=== PATIENT | male | born 1975 | race Caucasian/White ===

== ENCOUNTER 2019-03-13 13:46 | Inpatient (IN) | payer OTHER ==
[2019-03-13] MEDS ORDERED: DILTIAZEM DRIP BOLUS FROM BAG 1 MG SOLN IV ONE (14:04)
--- NOTE | 2019-03-13 14:08 | ED ---
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 Patient suddenly felt sweaty and nauseated and near syncopal. Patient denies having her currently having any palpitations. No chest pain. No history of similar symptoms previously. EMS did tell patient that his heart rate was high. Patient denies any history of arrhythmia. Patient states he does drink a lot of coffee, otherwise denies street drugs or diet pills. Patient is near symptom-free at this time. - Related Data Home Medications Medication Instructions Recorded Confirmed Lisinopril-Hctz 20-25 mg 1 tab PO DAILY 03/13/19 03/13/19 [Zestoretic 20-25] Metoprolol Succinate [Toprol XL] 25 mg PO DAILY 03/13/19 03/13/19 Allergies Allergy/AdvReac Type Severity Reaction Status Date / Time No Known Allergies Allergy Verified 03/13/19 14:09 Review of Systems ROS Statement: Those systems with pertinent positive or pertinent negative responses have been documented in the HPI. ROS Other: All systems not noted in ROS Statement are negative. Constitutional: Denies: fever Eyes: Denies: eye pain ENT: Denies: ear pain Respiratory: Denies: cough Cardiovascular: Denies: chest pain, palpitations Endocrine: Denies: fatigue Gastrointestinal: Reports: nausea. Denies: abdominal pain Genitourinary: Denies: dysuria Musculoskeletal: Denies: back pain Skin: Denies: rash Neurological: Denies: weakness Past Medical History Past Medical History: Hypertension History of Any Multi-Drug Resistant Organisms: None Reported Past Surgical History: No Surgical Hx Reported Past Psychological History: No Psychological Hx Reported Smoking Status: Former smoker Past Alcohol Use History: Occasional Past Drug Use History: None Reported General Exam Limitations: no limitations General appearance: alert, in no apparent distress Head exam: Present: atraumatic Eye exam: Present: normal appearance, PERRL ENT exam: Present: normal oropharynx Neck exam: Present: normal inspection Respiratory exam: Present: normal lung sounds bilaterally Cardiovascular Exam: Present: tachycardia Expanded Peripheral pulses: 2+: Radial (R), Radial (L), Posterior Tibialis (R), Posterior Tibialis (L) GI/Abdominal exam: Present: soft. Absent: tenderness Extremities exam: Present: normal inspection. 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 fib with RVR, rate 150. QRS 80. QT 320. QTc 507. Normal axis. PVCs. Normal QRS. No acute ST change. Medical Decision Making - Medical Decision Making Patient reevaluated and resting comfortably in bed. Heart rate is starting to improve and is between 120 and 140. Patient updated on results and plan. Dr. Mixon has been paged for hospital admission. - Lab Data Result diagrams: 03/13/19 14:01 03/13/19 14:01 Lab Results 03/13/19 03/13/19 03/13/19 Range/Units 14:01 14:01 14:01 WBC 7.5 (3.8-10.6) k/uL RBC 4.76 (4.30-5.90) m/uL Hgb 15.3 (13.0-17.5) gm/dL Hct 45.5 (39.0-53.0) % MCV 95.7 (80.0-100.0) fL MCH 32.3 (25.0-35.0) pg MCHC 33.7 (31.0-37.0) g/dL RDW 15.5 (11.5-15.5) % Plt Count 305 (150-450) k/uL Neutrophils % 59 % Lymphocytes % 29 % Monocytes % 6 % Eosinophils % 3 % Basophils % 2 % Neutrophils # 4.5 (1.3-7.7) k/uL Lymphocytes # 2.2 (1.0-4.8) k/uL Monocytes # 0.4 (0-1.0) k/uL Eosinophils # 0.2 (0-0.7) k/uL Basophils # 0.1 (0-0.2) k/uL PT 10.3 (9.0-12.0) sec INR 1.0 (<1.2) APTT 22.9 (22.0-30.0) sec Sodium 140 (137-145) mmol/L Potassium 3.0 L (3.5-5.1) mmol/L Chloride 102 (98-107) mmol/L Carbon Dioxide 28 (22-30) mmol/L Anion Gap 10 mmol/L BUN 15 (9-20) mg/dL Creatinine 1.00 (0.66-1.25) mg/dL Est GFR (CKD-EPI)AfAm >90 (>60 ml/min/1.73 sqM) Est GFR (CKD-EPI)NonAf >90 (>60 ml/min/1.73 sqM) Glucose 167 H (74-99) mg/dL Calcium 9.4 (8.4-10.2) mg/dL Magnesium 1.5 L (1.6-2.3) mg/dL Total Bilirubin 0.5 (0.2-1.3) mg/dL AST 45 (17-59) U/L ALT 94 H (21-72) U/L Alkaline Phosphatase 49 (38-126) U/L Creatine Kinase 74 (55-170) U/L Troponin I (0.000-0.034) ng/mL Total Protein 6.7 (6.3-8.2) g/dL Albumin 4.1 (3.5-5.0) g/dL Free T4 1.12 (0.78-2.19) ng/dL Free T3 pg/mL 4.8 (2.8-5.3) pg/ml Urine Color Urine Appearance (Clear) Urine pH (5.0-8.0) Ur Specific Hickman (1.001-1.035) Urine Protein (Negative) Urine Glucose (UA) (Negative) Urine Ketones (Negative) Urine Blood (Negative) Urine Nitrite (Negative) Urine Bilirubin (Negative) Urine Urobilinogen (<2.0) mg/dL Ur Leukocyte Esterase (Negative) Urine RBC (0-5) /hpf Urine WBC (0-5) /hpf Ur Squamous Epith Cells (0-4) /hpf Hyaline Casts (0-2) /lpf Urine Mucus (None) /hpf 03/13/19 03/13/19 Range/Units 14:01 14:10 WBC (3.8-10.6) k/uL RBC (4.30-5.90) m/uL Hgb (13.0-17.5) gm/dL Hct (39.0-53.0) % MCV (80.0-100.0) fL MCH (25.0-35.0) pg MCHC (31.0-37.0) g/dL RDW (11.5-15.5) % Plt Count (150-450) k/uL Neutrophils % % Lymphocytes % % Monocytes % % Eosinophils % % Basophils % % Neutrophils # (1.3-7.7) k/uL Lymphocytes # (1.0-4.8) k/uL Monocytes # (0-1.0) k/uL Eosinophils # (0-0.7) k/uL Basophils # (0-0.2) k/uL PT (9.0-12.0) sec INR (<1.2) APTT (22.0-30.0) sec Sodium (137-145) mmol/L Potassium (3.5-5.1) mmol/L Chloride (98-107) mmol/L Carbon Dioxide (22-30) mmol/L Anion Gap mmol/L BUN (9-20) mg/dL Creatinine (0.66-1.25) mg/dL Est GFR (CKD-EPI)AfAm (>60 ml/min/1.73 sqM) Est GFR (CKD-EPI)NonAf (>60 ml/min/1.73 sqM) Glucose (74-99) mg/dL Calcium (8.4-10.2) mg/dL Magnesium (1.6-2.3) mg/dL Total Bilirubin (0.2-1.3) mg/dL AST (17-59) U/L ALT (21-72) U/L Alkaline Phosphatase (38-126) U/L Creatine Kinase (55-170) U/L Troponin I 0.018 (0.000-0.034) ng/mL Total Protein (6.3-8.2) g/dL Albumin (3.5-5.0) g/dL Free T4 (0.78-2.19) ng/dL Free T3 pg/mL (2.8-5.3) pg/ml Urine Color Dark Yellow Urine Appearance Clear (Clear) Urine pH 5.5 (5.0-8.0) Ur Specific Hickman 1.031 (1.001-1.035) Urine Protein 2+ H (Negative) Urine Glucose (UA) 1+ H (Negative) Urine Ketones Negative (Negative) Urine Blood Trace H (Negative) Urine Nitrite Negative (Negative) Urine Bilirubin Negative (Negative) Urine Urobilinogen 3.0 (<2.0) mg/dL Ur Leukocyte Esterase Negative (Negative) Urine RBC 1 (0-5) /hpf Urine WBC 5 (0-5) /hpf Ur Squamous Epith Cells <1 (0-4) /hpf Hyaline Casts 15 H (0-2) /lpf Urine Mucus Many H (None) /hpf - Radiology Data Radiology results: image reviewed (Chest x-ray shows no acute process) Critical Care Time Critical Care Time: Yes Total Critical Care Time: 33 Disposition Clinical Impression: Atrial fibrillation with RVR Disposition: ADMITTED IP TO THIS [facility] Condition: Serious Is patient prescribed a controlled substance at d/c from ED?: No Referrals: Nonstaff,Physician [Primary Care Provider] - 1-2 days Decision Time: 14:49
[2019-03-13 14:14] LABS: Basophils # (A) 0.1 k/uL (0-0.2); Basophils % (A) 2 %; Eosinophils # (A) 0.2 k/uL (0-0.7); Eosinophils % (A) 3 %; HCT 45.5 % (39.0-53.0); HGB 15.3 gm/dL (13.0-17.5); Lymphocytes # (A) 2.2 k/uL (1.0-4.8); Lymphocytes % (A) 29 %; MCH 32.3 pg (25.0-35.0); MCHC 33.7 g/dL (31.0-37.0); MCV 95.7 fL (80.0-100.0); Mean Platelet Volume 7.7; Monocytes # (A) 0.4 k/uL (0-1.0); Monocytes % (A) 6 %; Neutrophils # (A) 4.5 k/uL (1.3-7.7); Neutrophils % (A) 59 %; Platelet Count 305 k/uL (150-450); RBC 4.76 m/uL (4.30-5.90); RDW 15.5 % (11.5-15.5); WBC 7.5 k/uL (3.8-10.6)
[2019-03-13] MEDS ORDERED: DILTIAZEM 125 MG in SODIUM CHLORIDE 0.9% 100 ML IV SCH (14:15)
[2019-03-13 14:19] LABS: Partial Thromboplastin Time 22.9 sec (22.0-30.0); Prothrombin Time 10.3 sec (9.0-12.0)
--- NOTE | 2019-03-13 14:24 | XR ---
EXAMINATION TYPE: XR chest 2V DATE OF EXAM: 03/13/2019 COMPARISON: NONE HISTORY: Dysrhythmia. TECHNIQUE: Frontal and lateral views of the chest are obtained. FINDINGS: There is no focal air space opacity, pleural effusion, or pneumothorax seen. The cardiac silhouette size is within normal limits. The osseous structures are intact. Overlying metallic left nipple or abdomen is seen. Overlying EKG leads are present. IMPRESSION: No acute process.
[2019-03-13 14:25] LABS: ALT 94 U/L (21-72); AST 45 U/L (17-59); African American GFR (CKD) >90 (>60 ml/min/1.73 sqM); Albumin 4.1 g/dL (3.5-5.0); Alkaline Phosphatase 49 U/L (38-126); Anion Gap 10 mmol/L; Blood Urea Nitrogen 15 mg/dL (9-20); Calcium 9.4 mg/dL (8.4-10.2); Carbon Dioxide 28 mmol/L (22-30); Chloride 102 mmol/L (98-107); Creatine Kinase 74 U/L (55-170); Glucose 167 mg/dL (74-99); Magnesium 1.5 mg/dL (1.6-2.3); Sodium 140 mmol/L (137-145); Total Bilirubin 0.5 mg/dL (0.2-1.3); Total Protein 6.7 g/dL (6.3-8.2)
[2019-03-13] MEDS ORDERED: MAGNESIUM SULFATE-D5W PMX 1 GM in DEXTROSE/WATER 1 100ML.BAG IVPB ONE (14:36)
[2019-03-13] MEDS ORDERED: MAGNESIUM OXIDE 400 MG TAB PO STA (14:36)
[2019-03-13] MEDS ORDERED: POTASSIUM CHLORIDE 10 MEQ in WATER FOR INJECTION 1 100ML.BAG IVPB ONE (14:37)
[2019-03-13] MEDS ORDERED: POTASSIUM CHLORIDE ER 20 MEQ TAB.ER PO STA (14:37)
[2019-03-13 14:42] LABS: T4, Free (Free Thyroxine) 1.12 ng/dL (0.78-2.19)
[2019-03-13 14:44] LABS: Appearance,Urine Clear (Clear); Bilirubin,Urine Negative (Negative); Blood,Urine Trace (Negative); Color,Urine Dark Yellow; Glucose,Urine (UA) 1+ (Negative); Hyaline Casts,Urine 15 /lpf (0-2); Ketones,Urine Negative (Negative); Leukocyte Esterase,Urine Negative (Negative); Mucus,Urine Many /hpf; Nitrite,Urine Negative (Negative); PH, Urine 5.5 (5.0-8.0); Protein,Urine 2+ (Negative); RBC,Urine 1 /hpf (0-5); Specific Gravity,Urine 1.031 (1.001-1.035); Squamous Epithelial Cell,Urine <1 /hpf (0-4); WBC,Urine 5 /hpf (0-5)
[2019-03-13] MEDS ORDERED: HEPARIN SODIUM,PORCINE 5,000 UNIT/ML 1 ML VIAL IV PRN (14:46)
[2019-03-13] MEDS ORDERED: HEPARIN SODIUM,PORCINE 5,000 UNIT/ML 1 ML VIAL IV ONE (14:46)
[2019-03-13 14:51] LABS: Cocaine Screen,Urine Not Detected (NotDetected); Opiate Screen,Urine Not Detected (NotDetected); Phencyclidine Screen,Urine Not Detected (NotDetected); Urn Cannabinoid Scrn Detected (NotDetected)
[2019-03-13 14:52] LABS: Amphetamine Screen,Urine Detected (NotDetected); Barbiturate Screen,Urine Not Detected (NotDetected); Benzodiazepines Screen,Urine Not Detected (NotDetected); Methadone Screen, Urine Not Detected (NotDetected); Oxycodone Screen, Urine Not Detected (NotDetected); Tricyclic Antidepressant,Urine Not Detected (NotDetected)
[2019-03-13] MEDS ORDERED: HEPARIN SOD,PORK IN 0.45% NACL 25,000 UNIT in 0.45% NACL 1 250ML.BAG IV SCH (15:00)
[2019-03-13] MEDS ORDERED: NALOXONE 0.4 MG/ML 1 ML VIAL IV PRN (17:07)
--- NOTE | 2019-03-13 17:55 | P.HPIM ---
History of Present Illness H&P Date: 03/13/19 Chief Complaint: Sudden sweating, nausea and near pass out feeling while at work today. This 43-year-old male with past medical history significant for hypertension and ADHD came to the emergency department with the above complaint. 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 Patient stated he did not passed out he felt lightheaded and he sat down after that he felt okay. Patient reports not to having such symptoms in the past. Patient denies chest pain, palpitation, diaphoresis, shortness of breath, headache, vomiting, fever, chills, sputum production, cough and denies rest of the review system. In the emergency room patient had extensive evaluation done which showed acceptable CBC, sodium 140, low potassium @ 3.0, low magnesium @ 1.5. Patient urine drug screen was positive for marijuana and amphetamines and his urine analysis was positive for proteinuria and hyaline cast. Chest x-ray was acceptable with no acute changes troponins first set was negative and EKG was noted to have atrial fibrillation with rapid ventricular rate. Patient was given 10 mg Cardizem IV push and started on IV Cardizem drip and patient was given a bolus of heparin with IV heparin drip EKG protocol. Patient was placed under observation status for further management. Review of Systems 12 point review of system was negative other than mentioned in HPI. Past Medical History Past Medical History: Hypertension Additional Past Medical History / Comment(s): ADHD, patient drinks monster drink 1-2 cans a day and 1-2 part of regular coffee per day. History of Any Multi-Drug Resistant Organisms: None Reported Past Surgical History: No Surgical Hx Reported Past Psychological History: No Psychological Hx Reported Smoking Status: Current every day smoker (Smokes about 1-1/2 pack per day and quit 2 days ago. Patient requested nicotine patch while in the hospital.) Past Alcohol Use History: Occasional (Once or twice a week, reports never had withdrawal if he doesn't drink alcoholic beverages.) Past Drug Use History: Marijuana (Smokes.) Medications and Allergies Home Medications Medication Instructions Recorded Confirmed Type Dextroamphetamine/Amphetamine 30 mg PO BID 03/13/19 03/13/19 History [Adderall] Lisinopril-Hctz 20-25 mg 1 tab PO DAILY 03/13/19 03/13/19 History [Zestoretic 20-25] Metoprolol Succinate [Toprol XL] 25 mg PO DAILY 03/13/19 03/13/19 History Allergies Allergy/AdvReac Type Severity Reaction Status Date / Time No Known Allergies Allergy Verified 03/13/19 14:09 Physical Exam Vitals: Vital Signs Temp Pulse Pulse Resp BP Pulse Ox 03/13/19 16:05 98.6 F 123 H 16 128/90 97 03/13/19 15:00 130 H 16 126/83 100 03/13/19 14:30 165 H 16 104/80 95 03/13/19 14:04 130 H 03/13/19 14:00 144 H 16 122/97 98 03/13/19 13:56 98.7 F 151 H 16 122/97 95 03/13/19 13:52 151 H 16 95 Intake and Output 03/13/19 03/13/19 03/13/19 06:59 14:59 22:59 Intake Total 3.75 Balance 3.75 Intake: Intake, IV Titration 3.75 Amount Diltiazem 125 mg In 3.75 Sodium Chloride 0.9% 100 ml @ 5 MG/HR 5 mls/hr IV .Q24H [facility] Rx#:[id number] Other: Weight 88.451 kg - Constitutional General appearance: cooperative, no acute distress - EENT Eyes: EOMI, normal appearance ENT: hearing grossly normal, NA/AT - Neck Neck: no lymphadenopathy, normal ROM, no rigidity, no stridor, no thyromegaly - Respiratory Respiratory: bilateral: CTA, negative: diminished, dullness, rales, rhonchi, wheezing - Cardiovascular Heart rate: 152 Rhythm: irregularly irregular Heart sounds: abnormal: S1 (Variable heart sounds), S2 (Variable heart sounds) Abnormal Heart Sounds: no systolic murmur, no diastolic murmur, no rub, no S3 Gallop, no S4 Gallop - Gastrointestinal General gastrointestinal: absent bowel sounds, no distended, normal bowel sounds, no rigid, soft, no tenderness - Integumentary Integumentary: no cellulitis, no cyanotic, no jaundiced, normal, normal turgor, no rash, no ulcer - Neurologic Grossly intact neurologically. Neurologic: CNII-XII intact - Psychiatric Psychiatric: A&O x's 3, appropriate affect, intact judgment & insight Results CBC & Chem 7: 03/13/19 14:01 03/13/19 14:01 Labs: Abnormal Lab Results - Last 24 Hours (Table) 03/13/19 03/13/19 Range/Units 14:01 14:10 Potassium 3.0 L (3.5-5.1) mmol/L Glucose 167 H (74-99) mg/dL Magnesium 1.5 L (1.6-2.3) mg/dL ALT 94 H (21-72) U/L Urine Protein 2+ H (Negative) Urine Glucose (UA) 1+ H (Negative) Urine Blood Trace H (Negative) Hyaline Casts 15 H (0-2) /lpf Urine Mucus Many H (None) /hpf Ur Amphetamines Screen Detected H (NotDetected) U Marijuana (THC) Screen Detected H (NotDetected) Chest x-ray: report reviewed (No acute disease process reported.) Thrombosis Risk Factor Assmnt - DVT/VTE Prophylaxis DVT/VTE Prophylaxis: Contraindicated - See note (Patient is on IV heparin for anticoagulation of acute atrial fibrillation with RVR.) Assessment and Plan (1) Atrial fibrillation with RVR Narrative/Plan: 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 Patient will continue on IV Cardizem and IV heparin and patient heart rate will be monitored. If patient stays tachycardic than IV Cardizem drip will be uptitrated to obtain desired heart rate provided blood pressure remains stable. Patient may need need electrical cardioversion if chemical cardioversion fails. Current Visit: Yes Status: Acute Priority: High Code(s): I48.91 - UNSPECIFIED ATRIAL FIBRILLATION SNOMED Code(s): 264350847795093 (2) Hypokalemia Narrative/Plan: Potassium was replaced in the emergency department, I will check basic panel in the morning to reassess patient's electrolytes. Current Visit: Yes Status: Acute Priority: High Code(s): E87.6 - HYPOKALEMIA SNOMED Code(s): 64549921 (3) Hypomagnesemia Narrative/Plan: Magnesium was replaced in the emergency department and I will check magnesium level in the morning. Current Visit: Yes Status: Acute Priority: High Code(s): E83.42 - HYPOMAGNESEMIA SNOMED Code(s): 655672814 (4) Proteinuria of undiagnosed cause Narrative/Plan: Patient does have proteinuria and hyaline cast on the urine analysis renal functions are acceptable at this point, may be due to hypertensive kidney disease versus other cause. Patient may need to follow up with nephrology as an outpatient for further evaluation of proteinuria. Current Visit: Yes Status: Acute Priority: High Code(s): R80.9 - PROTEINURIA, UNSPECIFIED SNOMED Code(s): 710218308 (5) ADHD (attention deficit hyperactivity disorder) Narrative/Plan: Patient forgot to tell the nurses in the emergency department earlier that he has ADHD and he is taking Addorel, when I confronted the patient on his reported history of no drug abuse that his marijuana and amphetamines are positive in the urine drug screen patient stated that he smokes marijuana and last was 3 weeks ago and he said that he forgot to tell the nurses that he takes medication for his ADHD. This medication was confirmed from his local pharmacy [facility] reporting as active prescription. Patient's home medication were reviewed and will be continued. Current Visit: No Status: Chronic Priority: Medium Code(s): F90.9 - ATTENTION-DEFICIT HYPERACTIVITY DISORDER, UNSPECIFIED TYPE SNOMED Code(s): 352910089 (6) Smoking addiction Narrative/Plan: Patient was counseled regarding quitting smoking as he just quit 2 days ago and he was educated about the benefits of quitting smoking and long-term good effects from it. Patient requested Habitrol patch as he used to smoke 1-1/2 pack per day. Nicotine patch 21 mg per 24 hour will be initiated. Current Visit: Yes Status: Acute Priority: High Code(s): F17.200 - NICOTINE DEPENDENCE, UNSPECIFIED, UNCOMPLICATED SNOMED Code(s): 549772051 (7) Hypertension, essential, benign Narrative/Plan: Patient blood pressure is on the low side but it could be due to patient's atrial fibrillation with rapid ventricular rate, I will continue home medication and will monitor patient's vitals. Current Visit: Yes Status: Acute Priority: Medium Code(s): I10 - ESSENTIAL (PRIMARY) HYPERTENSION SNOMED Code(s): 7051106 Plan: Patient will be kept in the hospital for up to 47 hours 59 minutes during which he will be seen by cardiology for the management of atrial fibrillation with RVR. Was patient is stable patient can be discharged home with outpatient follow-up. Time with Patient: Greater than 30 (more than 50% time spent in pt's education and counseling, all questions were answered.)
[2019-03-13] MEDS ORDERED: NON-FORMULARY DRUG (Dextroamphetamine/Amphetamine [Adderall] 30 MG) PO SCH (21:00)
[2019-03-14 03:33] LABS: HGB 14.3 gm/dL (13.0-17.5); RBC 4.39 m/uL (4.30-5.90); WBC 11.5 k/uL (3.8-10.6)
[2019-03-14 03:34] LABS: Basophils # (A) 0.2 k/uL (0-0.2); Basophils % (A) 1 %; Eosinophils # (A) 0.3 k/uL (0-0.7); Eosinophils % (A) 3 %; HCT 43.2 % (39.0-53.0); Lymphocytes # (A) 4.6 k/uL (1.0-4.8); Lymphocytes % (A) 40 %; MCH 32.7 pg (25.0-35.0); MCHC 33.2 g/dL (31.0-37.0); MCV 98.3 fL (80.0-100.0); Macrocytosis Slight; Mean Platelet Volume 7.7; Monocytes # (A) 0.7 k/uL (0-1.0); Monocytes % (A) 6 %; Neutrophils # (A) 5.6 k/uL (1.3-7.7); Neutrophils % (A) 48 %; Platelet Count 286 k/uL (150-450); RDW 15.8 % (11.5-15.5)
[2019-03-14 03:38] LABS: African American GFR (CKD) >90 (>60 ml/min/1.73 sqM); Anion Gap 6 mmol/L; Blood Urea Nitrogen 16 mg/dL (9-20); Calcium 8.9 mg/dL (8.4-10.2); Carbon Dioxide 31 mmol/L (22-30); Chloride 101 mmol/L (98-107); Cholesterol 195 mg/dL (<200); Glucose 125 mg/dL (74-99); Potassium 3.3 mmol/L (3.5-5.1); Sodium 138 mmol/L (137-145); Triglycerides 206 mg/dL (<150)
[2019-03-14 03:53] LABS: HDL Cholesterol 42 mg/dL (40-60); LDL Cholesterol,Calculated 112 mg/dL (0-99)
[2019-03-14 05:26] VITALS: PULSE 78
[2019-03-14] MEDS ORDERED: Potassium Replacement Protocol 1 EACH MISC MISCELLANE PRN (08:28)
[2019-03-14] MEDS ORDERED: NICOTINE 21MG/24HR PATCH TRANSDERM SCH (09:00)
[2019-03-14] MEDS ORDERED: METOPROLOL SUCCINATE (ER) 25 MG TAB.ER.24H PO SCH (09:00)
[2019-03-14] MEDS ORDERED: LISINOPRIL-HCTZ 20-25 MG 1 EACH TAB PO SCH (09:00)
--- NOTE | 2019-03-14 09:17 | ECHOF ---
Referral Reason:New-onset A. fib MEASUREMENTS -------- HEIGHT: 175.3 cm WEIGHT: 88.5 kg BP: 122/97 RVIDd: 2.9 cm (< 3.3) IVSd: 1.6 cm (0.6 - 1.1) LVIDd: 3.8 cm (3.9 - 5.3) LVPWd: 1.6 cm (0.6 - 1.1) IVSs: 1.7 cm LVIDs: 3.2 cm LVPWs: 1.9 cm LA Diam: 4.0 cm (2.7 - 3.8) LAESV Index (A-L): 29.50 ml/m Ao Diam: 3.3 cm (2.0 - 3.7) AV Cusp: 2.0 cm (1.5 - 2.6) MV EXCURSION: 17.570 mm (> 18.000) MV EF SLOPE: 137 mm/s (70 - 150) EPSS: 0.7 cm RAP: 15.00 mmHg RVSP: 41.71 mmHg FINDINGS -------- Atrial fibrillation. This was a technically good study. The left ventricular size is normal. There is moderate concentric left ventricular hypertrophy. O verall left ventricular systolic function is mild-moderately impaired with, an EF between 40 - 45 %. The right ventricle is normal in size. LA is midly dilated 29-33ml/m2. The right atrium is normal in size. Interatrial and interventricular septum intact. The aortic valve is trileaflet and appears structurally normal. The mitral valve is normal. Mild tricuspid regurgitation present. There is mild pulmonary hypertension. The right ventricular systolic pressure, as measured by Doppler, is 41.71mmHg. Trace/mild (physiologic) pulmonic regurgitation. The aortic root size is normal. Normal inferior vena cava with normal inspiratory collapse consistent with estimated right atrial pre ssure of 5 mmHg. The inferior vena cava is mildly dilated. There is no pericardial effusion. CONCLUSIONS -------- 1. Atrial fibrillation. 2. This was a technically good study. 3. The left ventricular size is normal. 4. There is moderate concentric left ventricular hypertrophy. 5. Overall left ventricular systolic function is mild-moderately impaired with, an EF between 40 - 45 %. 6. The right ventricle is normal in size. 7. LA is midly dilated 29-33ml/m2. 8. The right atrium is normal in size. 9. Interatrial and interventricular septum intact. 10. The aortic valve is trileaflet and appears structurally normal. 11. The mitral valve is normal. 12. Mild tricuspid regurgitation present. 13. There is mild pulmonary hypertension. 14. The right ventricular systolic pressure, as measured by Doppler, is 41.71mmHg. 15. Trace/mild (physiologic) pulmonic regurgitation. 16. The aortic root size is normal. 17. Normal inferior vena cava with normal inspiratory collapse consistent with estimated right atrial pressure of 5 mmHg. 18. The inferior vena cava is mildly dilated. 19. There is no pericardial effusion. MEDICAL DRIVER: Julianna Sevilla RDCS
[2019-03-14] MEDS: POTASSIUM CHLORIDE ER 20 MEQ TAB.ER PO SCH ×2 (10:33→11:10)
[2019-03-14] MEDS ORDERED: amLODIPine 5 MG TAB PO SCH (10:45)
[2019-03-14] MEDS ORDERED: APIXABAN 5 MG TAB PO SCH (10:45)
[2019-03-14] MEDS ORDERED: METOPROLOL TARTRATE 25 MG TAB PO STA (10:52)
--- NOTE | 2019-03-14 11:32 | CONS ---
CONSULTATION Mr. Ortiz is a 43-year-old gentleman who is seen for cardiac evaluation. This patient has a history of hypertension, ADHD. 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 He had to sit down and he was having some symptoms of hot and flash feeling. He did not complain of any chest pain, shortness of breath, diaphoresis. He did not pass out. The patient was evaluated in the emergency room and he was found to be in atrial fibrillation with a rapid ventricular response and the patient subsequently was admitted. In the emergency room, patient's potassium was 3.0, magnesium was 1.5. Urine drug screen was positive for marijuana and amphetamines and his urinalysis was also positive for proteinuria. The patient does give the history that he usually drinks 4 or 5 drinks several days in a month. PAST MEDICAL HISTORY: Past medical history includes ADHD. Patient drinks Monster drink 1 to 2 cans per day, 4 or 5 drinks of alcohol. SOCIAL HISTORY: Patient smokes about one and a half packs per day and he also smokes marijuana. MEDICATIONS: Patient's home medications include Zestril, metoprolol, and Adderall. PHYSICAL EXAMINATION: Physical examination at present revealed a 43-year-old gentleman who does not appear to be in any acute distress. In the emergency room, patient's heart rate was 140 to 150. At present, patient is in normal sinus rhythm with blood pressure of 180/100, heart rate is 78 per minute. HEAD/ENT examination is negative. Neck is supple. There is no increase in jugular venous pressure. Both the carotid pulses are felt. There is no bruit. Chest is symmetrical. HEART: The PMI is not felt. First and second heart sounds are normal. There is no evidence of any murmur. Lungs are clinically clear to auscultation and percussion. Abdomen is negative. EXTREMITIES: Peripheral pulsations are 2+. EKG now shows normal sinus rhythm. Initial EKG showed evidence of atrial fibrillation. The patient's potassium and magnesium were low, which has been corrected. The patient too has evidence of hypertension. Echocardiogram reveals left ventricular hypertrophy with mildly impaired left ventricular systolic function. FINAL IMPRESSION: This patient had an episode of paroxysmal atrial fibrillation is now in normal sinus rhythm. There are multiple factors which could have precipitated atrial fibrillation; patient drinks monster drinks, he had 4 or 5 drinks of alcohol and his potassium was low. The patient is advised to stay away from alcohol and any energy drinks. We will increase his Toprol and patient is given 3 samples of Eliquis 5 mg b.i.d. He is advised to follow up with his primary care physician. Patient is advised to stay for 1 more day, but he requests to go home. EVANS / AGUSTIN: [id number] /
[2019-03-14 12:36] VITALS: RESP 16; TEMP 98.7
--- NOTE | 2019-03-14 14:21 | P.PN ---
Subjective Progress Note Date: 03/14/19 Patient reported that he is feeling better but he is very upset about being is staying in the hospital. Patient has refused Habitrol patch earlier today. Patient blood pressure is been noted that it is running high both systolic and diastolic and Dr. Bolanos has increased the dose of Toprol-XL and added amlodipine. Patient was also started on Eliquis 5 mg twice a day and patient was giving some samples to initiate the management. Patient has ADHD history and was on Adderall which was ordered at the time of admission but it was discontinued by the pharmacy due to nonformulary medication. Also noted that patient potassium is still slightly low and replacement was given. Patient troponins 3 were negative and her heart rate is been in sinus rhythm around 80 per minute. Patient denies chest pain, palpitation, headache, dizziness, lightheadedness, nausea, vomiting, diarrhea and denies rest of the review system. Objective - Vital Signs Vital signs: Vital Signs Temp 98.7 F 03/14/19 12:25 Pulse 78 03/14/19 12:25 Resp 16 03/14/19 12:25 BP 167/103 03/14/19 12:25 Pulse Ox 95 03/14/19 12:25 Intake & Output 03/13/19 03/14/19 03/14/19 18:59 06:59 18:59 Intake Total 3.75 900.251 600 Balance 3.75 900.251 600 Weight 88.451 kg 92.4 kg 92.4 kg Intake: Intake, IV Titration 3.75 260.251 Amount Diltiazem 125 mg In 3.75 100.5 Sodium Chloride 0.9% 100 ml @ 5 MG/HR 5 mls/hr IV .Q24H [facility] Rx#:[id number] Heparin Sod,Pork in 0.45% 159.751 NaCl 25,000 unit In 0.45 % NaCl 1 250ml.bag @ 11.3 UNITS/KG/HR 9.995 mls/hr IV .Q24H [facility] Rx#: [id number] Oral 640 600 Other: Voiding Method Toilet Toilet # Voids 3 2 - Constitutional General appearance: Present: cooperative, no acute distress - EENT Eyes: Present: EOMI, normal appearance ENT: Present: hearing grossly normal, NA/AT - Respiratory Respiratory: bilateral: CTA, negative: diminished, dullness, rales, rhonchi, wheezing - Cardiovascular Rhythm: regular Heart sounds: normal: S1, S2 Abnormal Heart Sounds: Absent: systolic murmur, diastolic murmur, rub, S3 Gallop, S4 Gallop, click - Gastrointestinal General gastrointestinal: Present: normal bowel sounds, soft. Absent: distended, rigid, tenderness - Integumentary Integumentary: Present: normal, normal turgor - Neurologic Neurologic: Present: CNII-XII intact. Absent: focal deficits - Musculoskeletal Musculoskeletal: Present: gait normal - Psychiatric Psychiatric: Present: A&O x's 3, appropriate affect, intact judgment & insight - Allied health notes Allied health notes reviewed: nursing - Labs CBC & Chem 7: 03/14/19 03:00 03/14/19 03:00 Labs: Abnormal Lab Results - Last 24 Hours (Table) 03/13/19 03/13/19 03/13/19 Range/Units 14:01 14:10 19:34 WBC (3.8-10.6) k/uL RDW (11.5-15.5) % APTT 30.5 H (22.0-30.0) sec Potassium 3.0 L (3.5-5.1) mmol/L Carbon Dioxide (22-30) mmol/L Glucose 167 H (74-99) mg/dL Magnesium 1.5 L (1.6-2.3) mg/dL ALT 94 H (21-72) U/L Triglycerides (<150) mg/dL LDL Cholesterol, Calc (0-99) mg/dL Urine Protein 2+ H (Negative) Urine Glucose (UA) 1+ H (Negative) Urine Blood Trace H (Negative) Hyaline Casts 15 H (0-2) /lpf Urine Mucus Many H (None) /hpf Ur Amphetamines Screen Detected H (NotDetected) U Marijuana (THC) Screen Detected H (NotDetected) 03/14/19 03/14/19 03/14/19 Range/Units 03:00 03:00 03:00 WBC 11.5 H (3.8-10.6) k/uL RDW 15.8 H (11.5-15.5) % APTT 34.0 H (22.0-30.0) sec Potassium 3.3 L (3.5-5.1) mmol/L Carbon Dioxide 31 H (22-30) mmol/L Glucose 125 H (74-99) mg/dL Magnesium (1.6-2.3) mg/dL ALT (21-72) U/L Triglycerides 206 H (<150) mg/dL LDL Cholesterol, Calc 112 H (0-99) mg/dL Urine Protein (Negative) Urine Glucose (UA) (Negative) Urine Blood (Negative) Hyaline Casts (0-2) /lpf Urine Mucus (None) /hpf Ur Amphetamines Screen (NotDetected) U Marijuana (THC) Screen (NotDetected) Assessment and Plan (1) Atrial fibrillation with RVR Current Visit: Yes Status: Acute Priority: High Code(s): I48.91 - UNSPECIFIED ATRIAL FIBRILLATION SNOMED Code(s): 584173003715698 (2) Hypokalemia Current Visit: Yes Status: Acute Priority: High Code(s): E87.6 - HYPOKALEMIA SNOMED Code(s): 16845292 (3) Hypomagnesemia Current Visit: Yes Status: Acute Priority: High Code(s): E83.42 - HYPOMAGNESEMIA SNOMED Code(s): 705216796 (4) Proteinuria of undiagnosed cause Current Visit: Yes Status: Acute Priority: High Code(s): R80.9 - PROTEINURIA, UNSPECIFIED SNOMED Code(s): 235701105 (5) ADHD (attention deficit hyperactivity disorder) Current Visit: No Status: Chronic Priority: Medium Code(s): F90.9 - ATTENTION-DEFICIT HYPERACTIVITY DISORDER, UNSPECIFIED TYPE SNOMED Code(s): 989073630 (6) Smoking addiction Current Visit: Yes Status: Acute Priority: High Code(s): F17.200 - NICOTINE DEPENDENCE, UNSPECIFIED, UNCOMPLICATED SNOMED Code(s): 243345659 (7) Hypertension, essential, benign Current Visit: Yes Status: Acute Priority: Medium Code(s): I10 - ESSENTIAL (PRIMARY) HYPERTENSION SNOMED Code(s): 6767740 Plan: Patient is converted to sinus and normal sinus rhythm overnight and then per cardiology's to monitor for next 24 hours and discontinue IV heparin start him on Eliquis 5 mg twice daily but patient does not want to stay again and is planning to leave AGAINST MEDICAL ADVICE towards the end of the day. Patient is not medically stable due to the presence of uncontrolled hypertension and being actively treated and managed by Dr. Bolanos. Patient ACS has been ruled out but main problem is his paroxysmal atrial fibrillation and uncontrolled hypertension. Again today but of counseling was done regarding avoiding large amount of caffeinated products and education was given how he can slowly transitioned to decaffeinated products and then taken off completely. He was also counseled regarding quitting smoking as he smokes about 1 and 1/2 pack per day, patient verbalizes understanding and we will actively work on that. Edie ent potassium was still slightly low which will be replaced with potassium chloride tablet. If patient's blood pressure stays high then patient amlodipine can be increased to 10 mg from tomorrow morning. And was the patient is discharged in the morning patient needs short-term follow with his primary care provider. In my clinical judgment patient is not clinically stable to be discharged today. Time with Patient: Less than 30
[2019-03-14 14:34] VITALS: BP 167/109
[2019-03-14] MEDS ORDERED: LISINOPRIL 20 MG TAB PO STA (14:42)
[2019-03-14] MEDS ORDERED: hydrALAZINE HCL 20 MG/ML 1 ML VIAL IVP PRN (14:48)
--- NOTE | 2019-03-14 19:10 | P.DS ---
Providers Date of admission: 03/13/19 20:27 Expected date of discharge: 03/14/19 (Patient left AMA.) Attending physician: Mira Mixon DO Consults: 03/13/19 14:47 Consult Physician Urgent Consulting Provider: Andrei Bolanos Consult Reason/Comments: New-onset A. fib with RVR Do you want consulting provider notified?: Yes Primary care physician: Physician Nonstaff - Discharge Diagnosis(es) (1) Atrial fibrillation with RVR Status: Acute Priority: High (2) Hypokalemia Status: Acute Priority: High (3) Hypomagnesemia Status: Acute Priority: High (4) Proteinuria of undiagnosed cause Status: Acute Priority: High (5) ADHD (attention deficit hyperactivity disorder) Status: Chronic Priority: Medium (6) Smoking addiction Status: Acute Priority: High (7) Hypertension, essential, benign Status: Acute Priority: Medium Hospital Course: Patient was admitted with acute atrial fibrillation with rapid ventricular rate and he was given IV heparin and IV Cardizem drip. Overnight patient converted back to normal sinus rhythm and this morning IV heparin was discontinued and patient was started on Eliquis 5 mg twice a day per cardiology. Samples were provided to him. Patient blood pressures was running high since his heart rate restored to normal sinus rhythm. Patient was started on amlodipine 5 mg daily with first dose given in the morning Toprol-XL increased to 50 mg and lisinopril to 40 mg daily and patient was started on when necessary Apresoline every 6 hours with parameters. Cardiology recommended to monitor patient for another 24 hours after hinduism of normal sinus rhythm and to control blood pressure. Patient was explained in detail about issues of not getting worse medically treated well and leaving the hospital prematurely that may include worsening of his condition including but not limiting to . Patient verbalizes understanding and he initially tried to leave AGAINST MEDICAL ADVICE last night also he changes mind and stayed overnight in the hospital. But this afternoon patient despite of explaining in detail did not stated in the hospital and left AGAINST MEDICAL ADVICE. Patient new medication prescription were called into the pharmacy and patient was advised to burr picker from the pharmacy and follow with his PCP. Assessment: Please see today's progress note. Pertinent Studies: 2-D echocardiogram was performed please see report. Procedures: None. Patient Condition at Discharge: Serious Plan - Discharge Summary Discharge Rx Participant: Yes New Discharge Prescriptions: New Apixaban [Eliquis] 5 mg PO BID #60 tab Lisinopril 40 mg PO DAILY #30 tab amLODIPine [Norvasc] 5 mg PO DAILY #30 tab No Action Lisinopril-Hctz 20-25 mg [Zestoretic 20-25] 1 tab PO DAILY Metoprolol Succinate [Toprol XL] 25 mg PO DAILY Dextroamphetamine/Amphetamine [Adderall] 30 mg PO BID Discharge Medication List Dextroamphetamine/Amphetamine [Adderall] 30 mg PO BID 03/13/19 [History] Lisinopril-Hctz 20-25 mg [Zestoretic 20-25] 1 tab PO DAILY 03/13/19 [History] Metoprolol Succinate [Toprol XL] 25 mg PO DAILY 03/13/19 [History] Apixaban [Eliquis] 5 mg PO BID #60 tab 03/14/19 [Rx] Lisinopril 40 mg PO DAILY #30 tab 03/14/19 [Rx] amLODIPine [Norvasc] 5 mg PO DAILY #30 tab 03/14/19 [Rx] Follow up Appointment(s)/Referral(s): Nonstaff,Physician [Primary Care Provider] - 1-2 days (Please make an appointment with a primary care physician) [facility] [NON-STAFF] - Andrei Bolanos MD [STAFF PHYSICIAN] - 03/22/19 10:45 am (Wednesday) Patient Instructions/Handouts: A-fib (Atrial Fibrillation) (DC) Activity/Diet/Wound Care/Special Instructions: Indigent form sent to pharmacy for coverage of Rx at ct. Patient will be given 1 month of eliquis and then will need to find a PCP to follow up with to start on coumadin. Discharge Disposition: Left Against Medical Advice
[2019-03-15] MEDS ORDERED: METOPROLOL SUCCINATE (ER) 50 MG TAB.ER.24H PO SCH (09:00)
[2019-03-15] MEDS ORDERED: LISINOPRIL 20 MG TAB PO SCH (09:00)
== END 2019-03-14 15:38 | disposition left against medical advice (07) | DRG 310 ==
LOC: EC 13:46 → 3SCARD 14:47 → OBSVTOIN 20:27
PROVIDERS: ADMIT Internal Medicine; ATTEND Internal Medicine
DX: I48.0 Paroxysmal atrial fibrillation (principal); E83.42 Hypomagnesemia; E87.6 Hypokalemia; F17.210 Nicotine dependence, cigarettes, uncomplicated; F90.9 Attention-deficit hyperactivity disorder, unspecified type; I10 Essential (primary) hypertension; Z79.899 Other long term (current) drug therapy; R80.9 Proteinuria, unspecified
CPT/HCPCS: 36415; 71046; 80048; 80053; 80061; 80306; 81001; 82550; 83735; 84439; 84443; 84481; 84484; 85025; 85610; 85730; 93005; 93306; 96365; 96368; 96376; 99291